=== PATIENT | female | born 1960 | race African-American/Black ===

== ENCOUNTER 2017-03-28 17:08 | Emergency (ER) | payer SELFPAY ==
[~2017-03-28] VITALS: Ht 165.1 cm; Wt 97.3 kg
[2017-03-28] MEDS ORDERED: PERCOCET 5/31 TABLET PO (19:47)
[2017-03-28 20:35] VITALS: BP 178/99
== END 2017-03-28 20:35 | disposition home or self-care (01) ==
LOC: EME 17:08
PROC: 2W3QX1Z Immobilization of Right Lower Leg using Splint (ICD-10-PCS; principal; 2017-03-28)
DX: S82.441A Displaced spiral fracture of shaft of right fibula, initial encounter for closed fracture (principal); S82.301A Unspecified fracture of lower end of right tibia, initial encounter for closed fracture; W01.0XXA Fall on same level from slipping, tripping and stumbling without subsequent striking against object, initial encounter; I10 Essential (primary) hypertension; Z88.0 Allergy status to penicillin; Z72.0 Tobacco use
CPT/HCPCS: 73590; 73610; 99281; 99285; J2270